=== PATIENT | male | born 1990 | race African-American/Black ===

== ENCOUNTER 2022-05-11 15:10 | Emergency (ER) | payer MEDICAID ==
[~2022-05-11] VITALS: Ht 175.3 cm; Wt 95.3 kg
[2022-05-11 16:04] LABS: HEMATOCRIT 44.9 % (36.7-47.1); MEAN CORPUSCULAR HEMOGLOBIN 27.2 uug (23.8-33.4); MEAN CORPUSCULAR VOLUME 82.8 fL (73.0-96.2); PLATELET COUNT (AUTO) 209 K/uL (152-348)
[2022-05-11 16:09] LABS: CARBON DIOXIDE 28 mmol/L (21-32); CHLORIDE 105 mmol/L (98-107); GLUCOSE 116 mg/dL (74-106); POTASSIUM 3.6 mmol/L (3.5-5.1); UREA NITROGEN, BLOOD 13 mg/dL (7-18)
[2022-05-11 16:15] LABS: ALANINE AMINOTRANSFERASE 110 U/L (16-63); ALKALINE PHOSPHATASE 81 U/L (50-136); ASPARTATE AMINOTRANSFERASE 98 U/L (15-37); BILIRUBIN,DIRECT 0.1 mg/dL (0.0-0.2); BILIRUBIN,TOTAL 0.5 mg/dL (0.2-1.0); TOTAL PROTEIN, SERUM 7.5 g/dL (6.4-8.2)
[2022-05-11 16:16] LABS: ACETAMINOPHEN < 2.0 ug/mL (10-30)
--- NOTE | 2022-05-11 16:20 | NUR ---
Social Work consult was requested for a patient in the emergency room for mental health, homeless and substance abuse resources. Patient is a 32-year-old black male. Patient presents with depressed mood and congruent affect. Patient presents with poor insight and judgement. Patient states he does not have a primary contact. 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 Patient states he has been homeless for a couple of weeks, and JANET provided the patient with homeless resources for [facility] [place] [address] [place] [address] ([phone]) and [facility] [address] [facility] [address] ([phone]). JANET gave resources for [facility] [address] [place] [id number]. Patient appeared appreciative of the resources. Patient denies a history of substance abuse. Patient states he drinks alcohol and smokes marijuana recreationally. There is no toxicology report. JANET provided the patient with substance abuse resources for [facility] [address] [facility] [address] ([phone]), [facility] [address] [facility] [address] ([phone]), and [facility] [address] [facility] [address] ([phone]). Patient states he has a history of depression and schizophrenia. Patient states he has a therapist, Jacob Garcia, that he sees twice a month in [place]. Patient states he does not have a psychiatrist but takes medication from his primary physician. Patient denies current suicidal or homicidal ideation. Patient states he has had suicidal ideation in the past. JANET provided the patient with mental health resources for [facility] [address] [address] [place] [address] ([phone]). JANET provided emotional support and validation and coping strategies. Patient states he is open to going to [facility]. JANET faxed the patients facesheet to [facility] ([phone]) and spoke with William ([phone]). JANET informed nurse, Carole, and Doctor Gregory.
[2022-05-11 16:31] LABS: ETHANOL < 3 MG/DL (0-0)
--- NOTE | 2022-05-11 17:52 | NUR ---
Clinical summary faxed to [facility], .
--- NOTE | 2022-05-11 19:40 | NUR ---
November from [place] intake called, who request UDS to be fax. No urine collected by previous shift., Will fax when result is obtain
[2022-05-11] MEDS: IV NORMAL SALINE 1000 ML BAG IV ONE (20:35)
--- NOTE | 2022-05-11 21:23 | NUR ---
Patient removed IV. Catheter intact and site benign. Pressure and 4x4 gauze applied to site. No bleeding noted.
[2022-05-11 22:17] LABS: *BILIRUBIN,URIN NEGATIVE (NEGATIVE); *BLOOD, URINE NEGATIVE (NEGATIVE); *CLARITY,URINE CLEAR (CLEAR); *COLOR,URINE YELLOW (YELLOW); *KETONES,URINE 1+ (NEGATIVE); LEUKOCYTE ESTERASE ,URINE NEGATIVE (NEGATIVE); NITRITE, URINE NEGATIVE (NEGATIVE); UGLUCOSE NEGATIVE (NEGATIVE)
[2022-05-11 22:23] LABS: RBC,URINE 0-3 /HPF (0-3); WBC,URINE 0-3 /HPF (0-3)
[2022-05-11 22:24] LABS: BACTERIA,URINE NONE SEEN /HPF (NONE SEEN); SQUAMOUS EPITHELIAL CELL,UR FEW /HPF (NONE SEEN)
[2022-05-11 22:42] LABS: *AMPHETAMINE, URINE NEGATIVE (NEGATIVE); *CANNABINOID, URINE NEGATIVE (NEGATIVE); *COCCAINE, URINE NEGATIVE (NEGATIVE); *OPIATE, URINE NEGATIVE (NEGATIVE); *PHENCYCLIDINE SCREEN,URINE NEGATIVE (NEGATIVE)
[2022-05-12 00:17] VITALS: BP 108/71
--- NOTE | 2022-05-12 00:54 | NUR ---
November from [place] intake called back with transfer info. Patient will be going to [facility], Accepting MD is Sandra Covarrubias. Call for report is [phone] EXT [phone].
--- NOTE | 2022-05-12 00:59 | NUR ---
Called [facility] ambulance for transport of patient to [facility]. ETA is 90mins.
== END 2022-05-12 00:19 ==
LOC: ER 15:10
DX: F31.9 Bipolar disorder, unspecified (principal); R45.851 Suicidal ideations; Z91.14 Patient's other noncompliance with medication regimen; F20.9 Schizophrenia, unspecified; R74.01 Elevation of levels of liver transaminase levels; Z59.00 Homelessness unspecified; Z20.822 Contact with and (suspected) exposure to COVID-19; E11.9 Type 2 diabetes mellitus without complications; F12.90 Cannabis use, unspecified, uncomplicated
CPT/HCPCS: 80076; 80048; 81001; 85025; 87426; 36415; 99284; 96360; 80299; 80320; 80307; J7040; A4663; G0480